=== PATIENT | female | born 1940 | race Caucasian/White ===

== ENCOUNTER 2024-11-19 21:04 | Inpatient (IN) | payer MEDICARE, OTHER ==
[~2024-11-19] VITALS: Ht 157.5 cm; Wt 58.1 kg
[2024-11-19] MEDS ORDERED: ASPI81TA31 PO (21:28)
[2024-11-19] MEDS ORDERED: METF-494 PO (21:28)
[2024-11-19] MEDS ORDERED: UBID100T7 PO (21:28)
[2024-11-19] MEDS ORDERED: FOLI1TAB94 PO (21:28)
[2024-11-19] MEDS ORDERED: QUET25TA PO (21:28)
[2024-11-19] MEDS ORDERED: ACET-2030 PO (21:28)
[2024-11-19] MEDS ORDERED: DULO60CA45 PO (21:28)
[2024-11-19] MEDS ORDERED: CALC-903 PO (21:28)
[2024-11-19] MEDS ORDERED: MIRT7.5T10 PO (21:28)
[2024-11-19] MEDS ORDERED: EVOL140P3 SUBCUT (21:28)
[2024-11-19] MEDS ORDERED: FERR-68 PO (21:28)
[2024-11-19] MEDS ORDERED: MEMA10TA PO (21:28)
[2024-11-19] MEDS ORDERED: CHOL500062 PO (21:28)
[2024-11-19] MEDS ORDERED: CYAN25003 SL (21:28)
[2024-11-19] MEDS ORDERED: THIO200T PO (21:28)
[2024-11-19] MEDS ORDERED: OMEP40CA21 PO (21:28)
[2024-11-19] MEDS ORDERED: DONE10TA44 PO (21:28)
[2024-11-19] MEDS ORDERED: GABA-532 PO (21:28)
[2024-11-19] MEDS ORDERED: SENN8.6T19 PO (21:28)
[2024-11-19 22:39] VITALS: BP 126/76; TEMP 97.4; O2SAT 98
[2024-11-19] MEDS ORDERED: TEMAZEPAM 7.5 MG CAPSULE PO PRN (23:00)
[2024-11-19] MEDS ORDERED: LORAZEPAM 0.5 MG TABLET PO PRN (23:00)
[2024-11-19] MEDS ORDERED: MAG HYDROX/AL HYDROX/SIMETH 30 ML LIQUID UDC PO PRN (23:00)
[2024-11-19] MEDS ORDERED: MAGNESIUM HYDROXIDE 30 ML LIQUID UDC PO PRN (23:00)
[2024-11-19] MEDS ORDERED: ACETAMINOPHEN 325 MG TABLET PO PRN (23:00)
[2024-11-20 08:08] VITALS: BP 98/50; TEMP 97.5; O2SAT 96
[2024-11-20] MEDS: DULOXETINE 60 MG CAPSULE.DR PO SCH (13:03)
[2024-11-20] MEDS: DIVALPROEX 125 MG TABLET.DR PO SCH (13:03)
[2024-11-20] MEDS: GABAPENTIN 100 MG CAPSULE PO SCH (16:46)
[2024-11-20] MEDS: SENNOSIDES 1 TABLET PO SCH (16:46)
[2024-11-20] MEDS: METFORMIN HCL 500 MG TABLET PO SCH (16:46)
[2024-11-20 19:47] VITALS: BP 116/71; TEMP 97.7; O2SAT 96
[2024-11-20] MEDS: TEMAZEPAM 7.5 MG CAPSULE PO PRN (22:56)
[2024-11-21 08:06] VITALS: BP 110/52; TEMP 97.6; O2SAT 98
[2024-11-21] MEDS: LORAZEPAM 0.5 MG TABLET PO PRN (08:23)
[2024-11-21] MEDS: ASPIRIN 81 MG TAB.CHEW PO SCH (08:25)
[2024-11-21] MEDS: FOLIC ACID 1 MG TABLET PO SCH (08:26)
[2024-11-21 08:35] LABS: BASOPHILS # (AUTO) 0.1 K/UL (0.0-0.2); BASOPHILS % (AUTO) 1.2 % (0.0-2.0); EOSINOPHILS # (AUTO) 0.3 K/uL (0.0-0.7); EOSINOPHILS % (AUTO) 4.8 % (0.0-7.0); HEMATOCRIT 32.9 % (31.2-41.9); HEMOGLOBIN 10.5 g/dL (10.9-14.3); LYMPHOCYTES # (AUTO) 1.9 K/uL (0.8-4.8); LYMPHOCYTES % (AUTO) 30.9 % (20.5-51.5); MEAN CORPUSCULAR HEMOGLOBIN 25.6 uug (24.7-32.8); MEAN CORPUSCULAR HGB CONC 32 g/dL (32.3-35.6); MEAN CORPUSCULAR VOLUME 80.2 fL (75.5-95.3); MONOCYTES # (AUTO) 0.6 K/uL (0.1-1.30); MONOCYTES % (AUTO) 10.7 % (0.0-11.0); NEUTROPHILS # (AUTO) 3.1 K/uL (1.8-8.9); NEUTROPHILS % (AUTO) 52.4 % (38.5-71.5); PLATELET COUNT (AUTO) 338 K/uL (179-408); RED CELL DISTRIBUTION WIDTH 16.9 % (12.3-17.7)
[2024-11-21 08:41] LABS: DIFFERENTIAL COMMENT 1
[2024-11-21] MEDS: CHOLECALCIFEROL 400 UNITS TABLET PO SCH (08:49)
[2024-11-21 08:58] LABS: IRON, SERUM 30 ug/dL (50-175)
[2024-11-21] MEDS ORDERED: CHOLECALCIFEROL 1,000 UNIT TABLET PO SCH (09:00)
[2024-11-21] MEDS ORDERED: METFORMIN XR 500 MG TAB.SR.24H PO SCH (09:00)
[2024-11-21 09:47] LABS: ALANINE AMINOTRANSFERASE 9 U/L (14-59); ALBUMIN 3.4 g/dL (3.4-5.0); ALKALINE PHOSPHATASE 97 U/L (50-136); ASPARTATE AMINOTRANSFERASE 12 U/L (15-37); BILIRUBIN,DIRECT 0.1 mg/dL (0.0-0.2); BILIRUBIN,TOTAL 0.6 mg/dL (0.2-1.0); CALCIUM 7.9 mg/dL (8.5-10.1); CARBON DIOXIDE 27 mmol/L (21-32); CHLORIDE 105 mmol/L (98-107); CREATININE 1.3 mg/dL (0.6-1.3); FERRITIN 20 ng/mL (8-252); GLUCOSE 114 mg/dL (74-106); MAGNESIUM 2.4 mg/dL (1.8-2.4); PHOSPHOROUS 3.2 mg/dL (2.5-4.9); POTASSIUM 3.9 mmol/L (3.5-5.1); SODIUM SERUM 139 mmol/L (136-145); TOTAL PROTEIN, SERUM 7.4 g/dL (6.4-8.2); UREA NITROGEN, BLOOD 24 mg/dL (7-18)
[2024-11-21 10:26] LABS: THYROID STIMULATING HORMONE 1.974 mIU/mL (0.358-3.740)
[2024-11-21] MEDS ORDERED: METF-440 PO (10:50)
[2024-11-21] MEDS: ASCORBIC ACID 500 MG TABLET PO SCH (15:30)
[2024-11-21 16:38] VITALS: BP 100/46; TEMP 98.4; O2SAT 98
[2024-11-21 20:00] VITALS: BP 127/76; TEMP 97.7; O2SAT 99
[2024-11-22 08:08] VITALS: BP 149/68; TEMP 97.7; O2SAT 100
[2024-11-22] MEDS: FERROUS SULFATE 325 MG TABEC PO SCH (08:51)
[2024-11-22] MEDS: DULOXETINE 20 MG CAPSULE.DR PO SCH (13:00)
[2024-11-22] MEDS: DIVALPROEX 250 MG TABLET.DR PO SCH (17:07)
[2024-11-22 21:35] VITALS: BP 128/68; TEMP 98.1; O2SAT 98
[2024-11-23 07:30] VITALS: BP 126/73; TEMP 97.6; O2SAT 98
[2024-11-23 16:00] VITALS: BP 124/57; TEMP 97.3; O2SAT 96
[2024-11-23 20:11] VITALS: BP 106/67; TEMP 97.9; O2SAT 98
[2024-11-24 07:45] VITALS: BP 113/78; TEMP 98.4; O2SAT 98
[2024-11-24] MEDS: GLUCERNA SHAKE 237 ML CAN PO SCH (08:31)
[2024-11-24 15:01] VITALS: BP 125/80; TEMP 98.3; O2SAT 100
[2024-11-24] MEDS: DIVALPROEX 250 MG TABLET.DR PO SCH (16:57)
[2024-11-25 08:04] VITALS: BP 134/63; TEMP 97.6; O2SAT 99
[2024-11-25 16:02] VITALS: BP 128/62; TEMP 98.1; O2SAT 100
[2024-11-25 21:02] VITALS: BP 121/69; TEMP 97.3; O2SAT 96
[2024-11-26 08:10] VITALS: BP 116/79; TEMP 98.1; O2SAT 100
[2024-11-26 16:04] VITALS: BP 123/73; TEMP 97.8; O2SAT 98
[2024-11-26 22:07] VITALS: BP 122/74; TEMP 94.3; O2SAT 98
[2024-11-27 08:24] VITALS: BP 94/55; TEMP 98; O2SAT 100
[2024-11-27 15:02] VITALS: BP 112/79; TEMP 98; O2SAT 100
[2024-11-27 20:00] VITALS: BP 127/62; TEMP 98.7; O2SAT 98
[2024-11-28 08:01] LABS: BASOPHILS # (AUTO) 0.1 K/UL (0.0-0.2); BASOPHILS % (AUTO) 1.3 % (0.0-2.0); EOSINOPHILS # (AUTO) 0.2 K/uL (0.0-0.7); EOSINOPHILS % (AUTO) 4.2 % (0.0-7.0); HEMOGLOBIN 11.1 g/dL (10.9-14.3); LYMPHOCYTES # (AUTO) 1.9 K/uL (0.8-4.8); LYMPHOCYTES % (AUTO) 36.4 % (20.5-51.5); MEAN CORPUSCULAR HEMOGLOBIN 25.4 uug (24.7-32.8); MEAN CORPUSCULAR HGB CONC 32 g/dL (32.3-35.6); MEAN CORPUSCULAR VOLUME 80.1 fL (75.5-95.3); MONOCYTES # (AUTO) 0.7 K/uL (0.1-1.30); MONOCYTES % (AUTO) 12.6 % (0.0-11.0); NEUTROPHILS # (AUTO) 2.4 K/uL (1.8-8.9); NEUTROPHILS % (AUTO) 45.5 % (38.5-71.5); PLATELET COUNT (AUTO) 263 K/uL (179-408); RED BLOOD CELL COUNT(AUTO) 4.37 MIL/uL (3.63-4.92); RED CELL DISTRIBUTION WIDTH 17.2 % (12.3-17.7); WHITE BLOOD COUNT (AUTO) 5.3 K/uL (3.8-11.8)
[2024-11-28 08:03] LABS: DIFFERENTIAL COMMENT 1
[2024-11-28 08:06] VITALS: BP 128/46; TEMP 97.4; O2SAT 98
[2024-11-28 08:17] LABS: ALANINE AMINOTRANSFERASE 24 U/L (14-59); ALBUMIN 3.4 g/dL (3.4-5.0); ALKALINE PHOSPHATASE 83 U/L (50-136); ASPARTATE AMINOTRANSFERASE 25 U/L (15-37); BILIRUBIN,TOTAL 0.4 mg/dL (0.2-1.0); CALCIUM 9.1 mg/dL (8.5-10.1); CARBON DIOXIDE 28 mmol/L (21-32); CHLORIDE 105 mmol/L (98-107); GLUCOSE 96 mg/dL (74-106); POTASSIUM 4.6 mmol/L (3.5-5.1); SODIUM SERUM 141 mmol/L (136-145); TOTAL PROTEIN, SERUM 7.3 g/dL (6.4-8.2); UREA NITROGEN, BLOOD 16 mg/dL (7-18)
[2024-11-28 16:08] VITALS: BP 104/68; TEMP 98; O2SAT 100
[2024-11-28 20:00] VITALS: BP 132/69; TEMP 97.2; O2SAT 99
[2024-11-29 08:06] VITALS: BP 126/58; TEMP 98.1; O2SAT 100
[2024-11-29] MEDS ORDERED: ASCO500T21 PO (10:11)
== END 2024-11-29 11:45 | disposition home or self-care (01) | DRG 885 ==
LOC: ER 21:18 → GPS 21:45
PROVIDERS: ADMIT Psychiatry & Neurology Psychosomatic Medicine; ATTEND Nurse Practitioner Family
DX: F39 Unspecified mood [affective] disorder (principal); N17.9 Acute kidney failure, unspecified; G93.41 Metabolic encephalopathy; F02.811 Dementia in other diseases classified elsewhere, unspecified severity, with agitation; F02.84 Dementia in other diseases classified elsewhere, unspecified severity, with anxiety; K21.9 Gastro-esophageal reflux disease without esophagitis; Z88.0 Allergy status to penicillin; S60.811D Abrasion of right wrist, subsequent encounter; X78.9XXD Intentional self-harm by unspecified sharp object, subsequent encounter; D50.9 Iron deficiency anemia, unspecified; Z96.653 Presence of artificial knee joint, bilateral; Z87.891 Personal history of nicotine dependence; K57.30 Diverticulosis of large intestine without perforation or abscess without bleeding; E78.5 Hyperlipidemia, unspecified; Z79.899 Other long term (current) drug therapy; M15.9 Polyosteoarthritis, unspecified; E11.9 Type 2 diabetes mellitus without complications; G30.9 Alzheimer's disease, unspecified; I10 Essential (primary) hypertension; Z79.82 Long term (current) use of aspirin
CPT/HCPCS: 36415; 76770; 80164; 82746; 83550; 83735; 84100; 84443; 85025; A4663; J3490